=== PATIENT | female | born 1940 | race Caucasian/White ===

== ENCOUNTER → 2017-05-11 | Outpatient (CLI) | payer MEDICARE | END | disposition home or self-care (01) | LOC: OIH 15:06 | PROVIDERS: ATTEND Internal Medicine | DX: J06.9 Acute upper respiratory infection, unspecified (principal); M47.895 Other spondylosis, thoracolumbar region | CPT/HCPCS: 71046 ==

== ENCOUNTER 2020-11-23 06:25 | Observation (INO) | payer MEDICARE ==
[2020-11-16 13:09] LABS: BASOPHILS % (AUTO) 1.1 % (0.0-5.0); HEMATOCRIT 43.2 % (36-48); LYMPHOCYTES % (AUTO) 16.8 % (21.0-51.0); MEAN CORPUSCULAR HGB CONC 33.3 g/dL (32.0-36.0); MEAN CORPUSCULAR VOLUME 92.9 fL (79-99); MONOCYTES % (AUTO) 8.6 % (3.0-13.0); NEUTROPHILS % (AUTO) 71.4 % (40.0-77.0); PLATELET COUNT (AUTO) 247 K/uL (130-400); RED BLOOD CELL COUNT(AUTO) 4.65 MIL/uL (4.00-5.50); RED CELL DISTRIBUTION WIDTH 12.8 % (11.0-15.5); WHITE BLOOD COUNT (AUTO) 7.3 K/uL (4.8-10.8)
[2020-11-16 13:15] LABS: CREATININE 0.7 mg/dL (0.5-1.5); POTASSIUM 4.9 mmol/L (3.5-5.1)
[2020-11-16 13:16] LABS: INR 0.96 (0.85-1.15); PROTHROMBIN TIME 10.5 SEC (9.6-11.6)
[2020-11-16 13:17] LABS: PARTIAL THROMBOPLASTIN TIME 26.2 SEC (26.3-35.5)
[2020-11-22 10:29] VITALS: BP 152/86
[~2020-11-23] VITALS: Ht 175.3 cm; Wt 71.7 kg
[2020-11-23] VITALS (20 sets, daily range): BP systolic 93–165; BP diastolic 50–86
[~2020-11-23 06:25] MED LIST: ASCO1TAB13 PO; ASPI-1197 PO; ATEN25TA PO; CALC-190 PO; CETI10TA57 PO; CYAN250010 PO; DHA PO; EPA PO; FERR324T PO; GARL1TAB2 PO; INVOK100TB PO; LISI10TA24 PO; MULT-1258 PO; OMEGA PO; SITA1TAB6 PO; VITA400C79 PO; [UNRECOGNIZED DRUG - OTHER] PO
[2020-11-23] MEDS ORDERED: 0.9%NACL 1000ML 1,000 ML IV ONE (06:44)
[2020-11-23] MEDS: CLINDAMYCIN IVPB 600MG/50ML 50 ML IV SCH ×5 (07:00→20:47)
[2020-11-23] MEDS ORDERED: TRANEXAMIC ACID 1000MG/10ML ONE (07:16)
[2020-11-23] MEDS ORDERED: LIDOCAINE HCL-MPF 1% 5ML AMP IJ ONE (07:21)
[2020-11-23] MEDS ORDERED: DEXAMETHASONE SOD PHOSPHATE 10MG/ML 1ML VIAL ONE (07:22)
[2020-11-23] MEDS ORDERED: ONDANSETRON 4MG INJ ONE (07:22)
[2020-11-23] MEDS ORDERED: MIDAZOLAM HCL 1 MG/ML 2ML VIAL ONE (07:22)
[2020-11-23] MEDS ORDERED: PROPOFOL 10 MG/ML 20ML VIAL IV ONE ×4 (07:22→09:50)
[2020-11-23] MEDS ORDERED: HYDROMORPHONE 1 MG INJ ONE (07:37)
[2020-11-23] MEDS: 0.9%NACL 1000ML 1,000 ML IV SCH ×2 (08:00→18:00)
[2020-11-23] MEDS ORDERED: HYDROCODONE/ACETAMINOPHEN 5/325 MG TAB PO PRN (08:00)
[2020-11-23] MEDS ORDERED: POTASSIUM CHLORIDE 10% ELIXIR 20 MEQ/15 ML UDCUP PO PRN (08:00)
[2020-11-23] MEDS ORDERED: LIDOCAINE HCL-MPF 1% 2ML VIAL IV PRN (08:00)
[2020-11-23] MEDS ORDERED: KCL 20 MEQ ERTAB PO PRN (08:00)
[2020-11-23] MEDS: ACETAMINOPHEN 500 MG TABLET PO SCH ×2 (08:00→16:51)
[2020-11-23] MEDS ORDERED: ONDANSETRON 4MG INJ IVP PRN (08:00)
[2020-11-23] MEDS ORDERED: POTASSIUM CHLORIDE 20MEQ/100ML 100 ML IV PRN (08:00)
[2020-11-23] MEDS ORDERED: EPHEDRINE SULFATE 50 MG/ML AMPULE ONE (08:06)
[2020-11-23] MEDS ORDERED: PHENYLEPHRINE HCL 10 MG/ML 1ML VIAL IV ONE (08:08)
[2020-11-23] MEDS: **HM** INVOKANA 100MG PO SCH (09:00)
[2020-11-23] MEDS: LISINOPRIL 5 MG TABLET PO SCH (09:00)
[2020-11-23] MEDS: **HM** JANUMET 50-1000MG PO SCH ×2 (09:00→20:57)
[2020-11-23] MEDS: ASPIRIN 81 MG EC TAB PO SCH ×2 (09:00→20:54)
[2020-11-23] MEDS: FAMOTIDINE 20MG TAB PO SCH ×2 (09:00→20:54)
[2020-11-23] MEDS: POLYETHYLENE GLYCOL 3350 17 GM POWD.PACK PO SCH (09:00)
[2020-11-23] MEDS ORDERED: ROPIVICAINE 250MG+KETOROLAC 15MG+EPINEPHRINE 0.3+CLONIDINE 80 IV PRN ×5 (09:30)
[2020-11-23] MEDS: INSULIN HUMULIN R 100 UNIT/ML 3ML SQ SCH ×3 (11:30→21:00)
[2020-11-23] MEDS: TRAMADOL HCL 50 MG TABLET PO SCH ×2 (12:00→20:55)
[2020-11-23] MEDS ORDERED: ATENOLOL 25 MG TABLET PO SCH (21:00)
[2020-11-24] MEDS: OXYCODONE HCL 5 MG TAB PO PRN ×2 (03:33→14:50)
[2020-11-24 03:34] VITALS: BP 132/68
[2020-11-24] MEDS: 0.9%NACL 1000ML 1,000 ML IV SCH (03:52)
[2020-11-24 05:10] LABS: MEAN CORPUSCULAR HEMOGLOBIN 31.1 pg (27.0-33.0); MEAN CORPUSCULAR HGB CONC 34.2 g/dL (32.0-36.0); MEAN CORPUSCULAR VOLUME 90.9 fL (79-99); RED BLOOD CELL COUNT(AUTO) 3.41 MIL/uL (4.00-5.50); RED CELL DISTRIBUTION WIDTH 12.6 % (11.0-15.5); WHITE BLOOD COUNT (AUTO) 8.9 K/uL (4.8-10.8)
[2020-11-24 05:25] LABS: CREATININE 0.6 mg/dL (0.5-1.5); POTASSIUM 3.8 mmol/L (3.5-5.1)
[2020-11-24] MEDS: TRAMADOL HCL 50 MG TABLET PO SCH ×3 (05:30→11:26)
[2020-11-24] MEDS: INSULIN HUMULIN R 100 UNIT/ML 3ML SQ SCH ×3 (05:50→16:30)
[2020-11-24] MEDS: CLINDAMYCIN IVPB 600MG/50ML 50 ML IV SCH ×2 (05:50→16:00)
[2020-11-24] MEDS: MORPHINE 4 MG SYG IVP PRN ×2 (06:30→17:46)
[2020-11-24 07:48] VITALS: BP 122/62
[2020-11-24] MEDS: **HM** INVOKANA 100MG PO SCH (09:00)
[2020-11-24] MEDS: LISINOPRIL 5 MG TABLET PO SCH (09:00)
[2020-11-24] MEDS: **HM** JANUMET 50-1000MG PO SCH (09:00)
[2020-11-24] MEDS ORDERED: FERROUS GLUCONATE 27 MG PO SCH (09:00)
[2020-11-24] MEDS: ASPIRIN 81 MG EC TAB PO SCH (09:21)
[2020-11-24] MEDS: POLYETHYLENE GLYCOL 3350 17 GM POWD.PACK PO SCH (09:21)
[2020-11-24] MEDS: FAMOTIDINE 20MG TAB PO SCH (09:21)
[2020-11-24] MEDS: ACETAMINOPHEN 500 MG TABLET PO SCH ×3 (09:23→16:00)
[2020-11-24 10:59] VITALS: BP 131/71
[2020-11-24 16:14] VITALS: BP 136/78
[2020-11-26] MEDS ORDERED: BISACODYL 10 MG SUPP.RECT RC PRN (08:00)
== END 2020-11-24 18:00 | disposition home health service (06) ==
LOC: DAH 06:25 → DAHIP 06:26 → 3BH 11:50
PROVIDERS: ADMIT Orthopaedic Surgery; ATTEND Orthopaedic Surgery
DX: M17.11 Unilateral primary osteoarthritis, right knee (principal); Z20.822 Contact with and (suspected) exposure to COVID-19; R11.2 Nausea with vomiting, unspecified; E11.9 Type 2 diabetes mellitus without complications; J32.9 Chronic sinusitis, unspecified; Z79.899 Other long term (current) drug therapy
CPT/HCPCS: 27446; 36415 ×2; 71045; 73560; 80048 ×2; 82948 ×6; 85025; 85027; 85610; 85730; 87635; 87641; 88305; 88311; 93005; 96361; 96365; 96375; 96376; 97039 ×3; 97116; 97161; 97530 ×2; A4215; A4221; A4222; A4223; A4649 ×4; A4663; A4930; A5120; A6212; C1776; C9803; G0378 ×28; J1100; J1170; J1815; J2250; J2270 ×2; J2370; J2405; J2704 ×4; J3490 ×7; J7030 ×2

== ENCOUNTER → 2021-08-03 | Outpatient (CLI) | payer MEDICARE | END | disposition home or self-care (01) | LOC: RAH 12:36 | PROVIDERS: ATTEND Internal Medicine | DX: R10.11 Right upper quadrant pain (principal); R17 Unspecified jaundice; R63.4 Abnormal weight loss | CPT/HCPCS: 74150 ==